=== PATIENT | female | born 1945 | race Asian ===

== ENCOUNTER 2022-12-07 08:30 | Observation (INO) | payer MEDICARE, BC ==
[2022-12-06 12:55] LABS: BASOPHILS % (AUTO) 0.6 % (0-1); EOSINOPHILS # (AUTO) 0.3 X10'3 (0-0.9); LYMPHOCYTES # (AUTO) 1.2 X10'3 (1.1-4.8); LYMPHOCYTES % (AUTO) 22.5 % (21-51); MEAN CORPUSCULAR HEMOGLOBIN 32.5 PG (27.0-31.0); MEAN CORPUSCULAR HGB CONC 32.9 g/dL (33.0-36.5); MEAN CORPUSCULAR VOLUME 98.7 FL (78-98); MEAN PLATELET VOLUME 8.2 FL (7.4-10.4); MONOCYTES # (AUTO) 0.4 X10'3 (0-0.9); NEUTROPHILS # (AUTO) 3.5 X10'3 (1.8-7.7); NEUTROPHILS % (AUTO) 63.9 % (42-75); PRE OP HEMATOCRIT 40.7 % (35.0-45.0); PRE OP HEMOGLOBIN 13.4 g/dL (12.0-16.0); PRE OP PLATELET COUNT 251 X10'3 (140-440); RED BLOOD COUNT 4.13 X10'6 (4.20-5.60); RED CELL DISTRIBUTION WIDTH 13.9 % (11.5-14.5)
[2022-12-06 12:58] LABS: CLARITY,URINE CLEAR (Clear); COLOR,URINE STRAW (Yellow); GLUCOSE, URINE NEGATIVE (Neg); KETONES,URINE NEGATIVE (Neg); LEUKOCYTE ESTERASE ,URINE SMALL (Neg); NITRITES, URINE NEGATIVE (Neg); OCCULT BLOOD,URINE TRACE-INTACT (Neg); PH,URINE 5.5 (4.8-8.0); PROTEIN,URINE NEGATIVE (Neg); UROBILINOGEN,URINE 0.2 E.U/dL (0.2-1.0)
[2022-12-06 13:01] LABS: UA COLLECTION TYPE NON-SPECIFIED
[2022-12-06 13:04] LABS: ALBUMIN 3.8 G/DL (3.4-5.0); ALBUMIN/GLOBULIN RATIO 1.1 (1.1-1.5); ALKALINE PHOSPHATASE 80 IU/L (46-116); BLOOD UREA NITROGEN 13 MG/DL (7-18); BUN/CREATININE RATIO 14.8 (10.0-20.0); CALCIUM 8.9 MG/DL (8.5-10.1); CHLORIDE 106 MMOL/L (99-107); CREATININE 0.88 MG/DL (0.40-0.90); PRE OP ALT 43 U/L (30-65); PRE OP ANION GAP 10 (8-16); PRE OP AST 25 U/L (10-37); PRE OP BILIRUB, TOTAL 0.4 MG/DL (0.0-1.0); PRE OP GLUCOSE 101 MG/DL (70-104); PRE OP POTASSIUM 3.8 MMOL/L (3.4-5.1); PRE OP SODIUM 141 MMOL/L (135-145); TOTAL CARBON DIOXIDE 25.4 MMOL/L (24-32); TOTAL PROTEIN 7.3 G/DL (6.4-8.2); eGFR 62 ML/MIN
[2022-12-06 13:22] LABS: MUCUS STRANDS FEW /LPF (Neg); SQUAMOUS EPITHELIAL CELL,UR FEW /LPF (FEW)
[2022-12-06 13:23] LABS: BACTERIA,URINE 1+ /HPF (Neg); RBC,URINE 0-2 /HPF (0-2); WBC,URINE 0-4 /HPF (0-4)
[2022-12-06 13:24] LABS: TRANSITIONAL EPI CELLS,URINE FEW /HPF
[2022-12-07] VITALS (18 sets, daily range): BP systolic 120–154; BP diastolic 7–78
[~2022-12-07] VITALS: Ht 152.4 cm; Wt 55.5 kg
[~2022-12-07 08:30] MED LIST: ANAS1TAB10 PO; CALC500T63 PO; CHOL100040 PO; LEVO50TA8 PO; MULT-1085 PO; cefazolin 2gm/D5W 100mL 100 ML IV ONE; famotidine 20mg tablet PO ONE; ringers solution, lacted 1,000 ML IV SCH
[2022-12-07] MEDS ORDERED: desflurane 240ml liquid inh. IH ONE (12:58)
[2022-12-07] MEDS ORDERED: rocuronium 10mg/ml inj IV ONE ×2 (12:58→13:37)
[2022-12-07] MEDS ORDERED: neostigmine methylsulfate 1 MG/ML 10ml vial ONE (12:58)
[2022-12-07] MEDS ORDERED: ePHEDrine 50MG/ML INJ. ONE (12:58)
[2022-12-07] MEDS ORDERED: dexamethasone sod phosphate 10mg/ml inj ONE (12:58)
[2022-12-07] MEDS ORDERED: glycopyrrolate 0.2mg/ml inj ONE (12:58)
[2022-12-07] MEDS ORDERED: fentaNYL/PF 50MCG/1 ML 2ML syringe ONE ×2 (13:04→14:17)
[2022-12-07] MEDS ORDERED: midazolam 1 mg/ML 2ml injection ONE (13:04)
[2022-12-07] MEDS ORDERED: ringers solution, lacted 1,000 ML IV SCH (13:25)
[2022-12-07] MEDS ORDERED: proCHLORperazine 10 MG/2 ml inj IV PRN (13:25)
[2022-12-07] MEDS ORDERED: morphine 4 MG/ML inj SYRINge IV PRN (13:25)
[2022-12-07] MEDS ORDERED: ondansetron/PF 4mg/2ml inj IV PRN ×2 (13:25→15:50)
[2022-12-07] MEDS ORDERED: morphine 2 MG/ML inj. syringe IV PRN ×3 (13:25→15:50)
[2022-12-07] MEDS ORDERED: meperidine/PF 25mg/ml syringe IV PRN ×3 (13:25)
[2022-12-07] MEDS ORDERED: BUPIVAcaine/PF 2.5 mg/ml (0.25%) 30ml vial ONE (13:28)
[2022-12-07] MEDS ORDERED: LIDOcaine 2% (20mg/ml) 5ml vial ONE (13:36)
[2022-12-07] MEDS ORDERED: propofol inj 20 ML IV ONE (13:36)
[2022-12-07] MEDS ORDERED: ondansetron/PF 4mg/2ml inj ONE (13:37)
[2022-12-07] MEDS ORDERED: acetaminophen 1,000mg/100ml IV 100 ML IV ONE (13:37)
--- NOTE | 2022-12-07 15:12 | NUR ---
Received from OR via SUGICAL BED , accompanied by Anesthesiologist SUZAN and report given by Anesthesiolgist. PT ROUSALBLE. BANDAID DRESSINGS x2 TO MID ABDOMEN CDI; DANO DRAIN TO R ABDOMEN DRAINING SEROSANGUINOUS DG. 20 G IV TO R WRIST; 20 G IV TO LFA - ACETAMINOPHEN INFUSION STARTED TO R ARM IV; EUPNEIC RESPIRATIONS - O2 10L PER MASK; DENIES PAIN AT THIS TIME. PT HAS SUBCUTANEOUS CREPITUS UPPER CHEST AND SLIGHTLY INTO L NECK. SR. Addendum: 12/07/22 at 1534 by Yury Jenkins RN Amended: Links added.
[2022-12-07] MEDS ORDERED: potassium Cl 20 mEq SR tablet PO PRN ×2 (15:50)
[2022-12-07] MEDS ORDERED: HYDROcodone/acetaminophen 5mg/325mg tablet PO PRN (15:50)
[2022-12-07] MEDS ORDERED: magnesium 4gm in 100ml NS 100 ML IV PRN (15:50)
[2022-12-07] MEDS ORDERED: mag hydrox/Alum hydrox/simeth 30ml oral suspension PO PRN (15:50)
[2022-12-07] MEDS ORDERED: HYDROcodone/acetaminophen 10/325mg tab PO PRN (15:50)
[2022-12-07] MEDS ORDERED: acetaminophen 325mg tablet PO PRN (15:50)
[2022-12-07] MEDS ORDERED: magnesium 2GM in 50ml NS 50 ML IV PRN (15:50)
[2022-12-07] MEDS ORDERED: acetaminophen 650mg rectal suppository RC PRN (15:50)
[2022-12-07] MEDS ORDERED: magnesium hydroxide 30ml (MOM) UD suspension PO PRN (15:50)
[2022-12-07] MEDS ORDERED: magnesium Cl slow-release 64mg tablet PO PRN (15:50)
[2022-12-07] MEDS ORDERED: diphenhydrAMINE 25mg capsule PO PRN (15:50)
[2022-12-07] MEDS ORDERED: potassium Cl 40MEQ/1/2NS 520ml 520 ML IV PRN (15:50)
[2022-12-07] MEDS ORDERED: bisacodyl 10mg suppository rectal RC PRN (15:50)
--- NOTE | 2022-12-07 16:22 | NUR ---
REPORT GIVEN AND ALL QUESTIONS ANSWERED. PATIENT TRANSFERRED TO PCU LABELED BELONGINGS PRESENT AND DELIVERED TO ROOM. PT DEVELOPED NAUSEA DURING TRANSFER; BURPED. RN/BARMAID PRESENT ALL CRITERIA FOR TRANSFER BACK TO THE FLOOR HAS BEEN ACHIEVED. VSS. PAIN AT A TOLERABLE LEVEL. BED LOW, CALL LIGHT PRESENT AND 2 RAILS DOWN. RN AWARE THAT PATIENT HAS ARRIVED. TO ACCEPT CARE OF PATIENT Addendum: 12/07/22 at 1643 by Yury Jenkins RN Amended: Links added.
[2022-12-07] MEDS: CefTRIAXone/D5W-Rocephin 1gm 50 ML IV SCH (16:46)
[2022-12-07 18:42] LABS: HEMATOCRIT 30.4 % (35.0-45.0); HEMOGLOBIN 10.3 g/dl (12.0-16.0); MEAN CORPUSCULAR HEMOGLOBIN 33.2 PG (27.0-31.0); MEAN CORPUSCULAR HGB CONC 33.8 g/dL (33.0-36.5); MEAN CORPUSCULAR VOLUME 98.2 FL (78-98); MEAN PLATELET VOLUME 8.3 FL (7.4-10.4); PLATELET COUNT 205 X10'3 (140-440); RED BLOOD COUNT 3.09 X10'6 (4.20-5.60); RED CELL DISTRIBUTION WIDTH 13.5 % (11.5-14.5); WHITE BLOOD COUNT 10.3 X10'3 (4.5-11.0)
--- NOTE | 2022-12-07 18:55 | NUR ---
Patient in room PCU 3019. I have received report from Esther and had the opportunity to ask questions and assume patient care.
--- NOTE | 2022-12-07 19:04 | NUR ---
Report give to Merritt ESCOBAR.
[2022-12-07] MEDS: docusate sod 100mg capsule PO SCH (20:00)
[2022-12-07] MEDS: K and/or MAG REPLACEMENT MC SCH (20:00)
[2022-12-07] MEDS: normal saline 1000ml 1,000 ML IV SCH (21:17)
[2022-12-07 21:57] LABS: HEMATOCRIT 29.3 % (35.0-45.0); MEAN CORPUSCULAR HEMOGLOBIN 33.2 PG (27.0-31.0); MEAN CORPUSCULAR VOLUME 97.5 FL (78-98); MEAN PLATELET VOLUME 8.1 FL (7.4-10.4); PLATELET COUNT 193 X10'3 (140-440); RED BLOOD COUNT 3.01 X10'6 (4.20-5.60); RED CELL DISTRIBUTION WIDTH 13.1 % (11.5-14.5); WHITE BLOOD COUNT 10.6 X10'3 (4.5-11.0)
[2022-12-08 02:00] VITALS: BP 137/70
--- NOTE | 2022-12-08 02:32 | NUR ---
Pt up to bathroom using FWW. Pt became nauseas, and accidentally urinated on floor. Bed, linen change performed, socks changed, feet washed, gown changed. Pt refused nausea medication.
[2022-12-08 06:00] VITALS: BP 113/53
--- NOTE | 2022-12-08 06:10 | NUR ---
Patient in room PCU 3019. I have received report from Merritt ESCOBAR and had the opportunity to ask questions and assume patient care. Assisted pt to bathroom to void. Pt requesting Tylenol for pain. Tylenol given. Addendum: 12/08/22 at 0900 by Christen Workman RN Amended: Links added.
--- NOTE | 2022-12-08 06:26 | NUR ---
Problems reprioritized. Patient report given, questions answered & plan of care reviewed with Kyle.
[2022-12-08] MEDS: acetaminophen 325mg tablet PO PRN ×2 (06:47→12:59)
[2022-12-08] MEDS: normal saline 1000ml 1,000 ML IV SCH ×2 (06:48→12:40)
[2022-12-08 06:59] LABS: BASOPHILS % (AUTO) 0.1 % (0-1); EOSINOPHILS % (AUTO) 0 % (0-6); LYMPHOCYTES # (AUTO) 0.8 X10'3 (1.1-4.8); LYMPHOCYTES % (AUTO) 8.7 % (21-51); MEAN CORPUSCULAR HEMOGLOBIN 32.6 PG (27.0-31.0); MEAN CORPUSCULAR HGB CONC 33.5 g/dL (33.0-36.5); MEAN CORPUSCULAR VOLUME 97.4 FL (78-98); MONOCYTES # (AUTO) 0.6 X10'3 (0-0.9); MONOCYTES % (AUTO) 6.3 % (2-12); NEUTROPHILS % (AUTO) 84.9 % (42-75); PLATELET COUNT 195 X10'3 (140-440); RED BLOOD COUNT 2.77 X10'6 (4.20-5.60); RED CELL DISTRIBUTION WIDTH 13.6 % (11.5-14.5); WHITE BLOOD COUNT 9.4 X10'3 (4.5-11.0)
[2022-12-08 07:06] LABS: ALANINE AMINOTRANSFERASE 96 U/L (12-78); ALBUMIN 2.9 G/DL (3.4-5.0); ALBUMIN/GLOBULIN RATIO 1.1 (1.1-1.5); ALKALINE PHOSPHATASE 50 IU/L (46-116); ANION GAP 9 (8-16); ASPARTATE AMINO TRANSFERASE 107 U/L (10-37); BILIRUBIN,TOTAL 0.4 MG/DL (0.1-1.0); BLOOD UREA NITROGEN 13 MG/DL (7-18); BUN/CREATININE RATIO 15.5 (10.0-20.0); CALCIUM 7.4 MG/DL (8.5-10.1); CHLORIDE 105 MMOL/L (99-107); CREATININE 0.84 MG/DL (0.40-0.90); GLUCOSE 119 MG/DL (70-104); POTASSIUM 3.8 MMOL/L (3.5-5.1); SODIUM 137 MMOL/L (135-145); TOTAL CARBON DIOXIDE 23.4 MMOL/L (24-32); TOTAL PROTEIN 5.5 G/DL (6.4-8.2); eGFR 66 ML/MIN
[2022-12-08] MEDS ORDERED: anastrozole 1 MG tablet PO SCH (08:00)
[2022-12-08] MEDS ORDERED: calcium carbonate 500mg tablet PO SCH (08:00)
[2022-12-08] MEDS ORDERED: levoTHYROXINE 25mcg tablet PO SCH (08:00)
[2022-12-08] MEDS: K and/or MAG REPLACEMENT MC SCH (08:00)
[2022-12-08] MEDS: docusate sod 100mg capsule PO SCH (08:00)
[2022-12-08] MEDS ORDERED: multivitamins, therapeutics tablet PO SCH (08:00)
[2022-12-08] MEDS: CefTRIAXone/D5W-Rocephin 1gm 50 ML IV SCH (08:33)
[2022-12-08 10:03] LABS: HEMATOCRIT 26.2 % (35.0-45.0); HEMOGLOBIN 8.9 g/dl (12.0-16.0); MEAN CORPUSCULAR HEMOGLOBIN 33.2 PG (27.0-31.0); MEAN CORPUSCULAR VOLUME 97.7 FL (78-98); MEAN PLATELET VOLUME 8.2 FL (7.4-10.4); PLATELET COUNT 214 X10'3 (140-440); RED BLOOD COUNT 2.68 X10'6 (4.20-5.60); RED CELL DISTRIBUTION WIDTH 13.6 % (11.5-14.5); WHITE BLOOD COUNT 10.3 X10'3 (4.5-11.0)
[2022-12-08 11:00] VITALS: BP 110/53
[2022-12-08] MEDS ORDERED: CEFD300C3 PO (13:34)
--- NOTE | 2022-12-08 13:35 | NUR ---
removed pt DANO drain per DR Holland at bedside. Pt tolerated well.
[2022-12-08 14:01] LABS: HEMATOCRIT 24.3 % (35.0-45.0); HEMOGLOBIN 8.3 g/dl (12.0-16.0); MEAN CORPUSCULAR HEMOGLOBIN 33.5 PG (27.0-31.0); MEAN CORPUSCULAR HGB CONC 34.2 g/dL (33.0-36.5); MEAN CORPUSCULAR VOLUME 97.8 FL (78-98); MEAN PLATELET VOLUME 8.1 FL (7.4-10.4); PLATELET COUNT 192 X10'3 (140-440); RED BLOOD COUNT 2.49 X10'6 (4.20-5.60); RED CELL DISTRIBUTION WIDTH 13.2 % (11.5-14.5); WHITE BLOOD COUNT 8.9 X10'3 (4.5-11.0)
--- NOTE | 2022-12-08 14:05 | NUR ---
Message: [id number] [place]. H/H 8.3/ 24.3 down from 8.9/ 26.2 Christen COX BRANSON Transaction number: [id number]
--- NOTE | 2022-12-08 15:49 | NUR ---
All written and verbal orders for D/C given. All questions answered. Pt stated she had all belongings . home with . Addendum: 12/08/22 at 1550 by Christen Workman RN Amended: Links added.
[2022-12-14 08:42] LABS: ISTAT K 3.7 mmol/L (3.5-5.1)
[2022-12-14 08:43] LABS: ISTAT CREATININE 0.7 mg/dL (0.6-1.1); ISTAT HGB 8.8 g/dl (12.0-16.0); ISTAT IONIZED CALCIUM 1.19 mmol/L (1.03-1.32); POC BUN/CREATININE RATIO 12.9 (6.6-38.0)
== END 2022-12-08 15:15 | disposition home or self-care (01) ==
LOC: PAS 08:30 → PCU 3S 15:52
PROVIDERS: ADMIT Family Medicine; ATTEND Surgery
DX: K76.89 Other specified diseases of liver (principal); E03.9 Hypothyroidism, unspecified; N39.0 Urinary tract infection, site not specified; Z85.3 Personal history of malignant neoplasm of breast; Z79.899 Other long term (current) drug therapy
CPT/HCPCS: 36415; 47379; 71045; 80047; 80053; 81001; 82948; 85025; 85027; 86885; 86900; 86901; 86920; 87088; 93005; 96365; 96366; 96375; 96376; A6222; G0378; J0131; J0690; J0696; J1100; J2250; J2270; J2405; J2704; J2710; J3010; J3490; J7030; J7040; J7120; A4215; A4615; A4618; A6402; A6449; A7000